=== PATIENT | female | born 1945 | race Caucasian/White ===

== ENCOUNTER → 2016-08-18 | Outpatient (CLI) | payer OTHER, BC ==
[2016-08-18 13:01] LABS: BASOPHILS # (AUTO) 0.05 10*3/UL; EOSINOPHILS # (AUTO) 0.15 10*3/UL; HEMATOCRIT 44.9 % (37.0-47.0); LYMPHOCYTES # (AUTO) 1.22 10*3/uL; MEAN CORPUSCULAR HEMOGLOBIN 28.3 PG (27-31); MEAN CORPUSCULAR HGB CONC 33.4 g/dL (33-37); MEAN CORPUSCULAR VOLUME 84.7 FL (81-99); MEAN PLATELET VOLUME 9.3 FL (7.4-12.2); MONOCYTES # (AUTO) 0.45 10*3/UL (0.3-0.8); NEUTROPHILS # (AUTO) 3.11 10*3/UL; NEUTROPHILS % (AUTO) 62.5 % (50-80)
[2016-08-18 13:07] LABS: BILIRUBIN,URINE NEGATIVE (NEG); COLOR,URINE YELLOW; GLUCOSE, URINE (UA) NEGATIVE (NEG); NITRATE,URINE NEGATIVE (NEG); OCCULT BLOOD,URINE MODERATE (NEG); PH,URINE 5.5 (5.0-8.5); PROTEIN,URINE NEGATIVE (NEG); UROBILINOGEN,URINE 0.2 EU/dL (0.2)
[2016-08-18 13:10] LABS: PLATELET MORPHOLOGY COMMENT NORMAL MORPHOLOGY (NORM); RBC MORPHOLOGY COMMENT NORMAL MORPHOLOGY (NORM); WBC MORPHOLOGY COMMENT NORMAL MORPHOLOGY (NORM)
[2016-08-18 13:26] LABS: BACTERIA,URINE RARE; CLARITY,URINE CLEAR (CLEAR); RENAL EPITHELIAL CELLS,URINE RARE; SQUAMOUS EPITHELIAL CELL,UR RARE; URINE SAMPLE TYPE CLEAN CATCH URINE; WBC,URINE 0-3
== END ==
LOC: MOB LAB 11:28
PROVIDERS: ATTEND Nurse Practitioner Family
DX: K57.92 Diverticulitis of intestine, part unspecified, without perforation or abscess without bleeding (principal); R31.9 Hematuria, unspecified
CPT/HCPCS: 36415; 81001; 85025

== ENCOUNTER → 2016-09-13 | Outpatient (CLI) | payer OTHER, BC | LOC: MOB LAB 10:15 | PROVIDERS: ATTEND Physician Assistant | DX: R35.0 Frequency of micturition (principal); R30.0 Dysuria; R39.15 Urgency of urination; R82.99 Other abnormal findings in urine | CPT/HCPCS: 81002; 87077; 87088; 87186 ×2; 99213; G0463 ==

== ENCOUNTER → 2016-10-06 | Outpatient (CLI) | payer OTHER, BC ==
--- NOTE | 2016-10-06 12:55 | DI ---
CT ABDOMEN SCAN WITHOUT AND WITH IV CONTRAST, 10/06/2016 10:52 AM : Clinical History: Microscopic hematuria. Previous Exam: None at this facility. Scans are performed from the lower lung bases through the liver and kidneys without and with IV contr ast. Sagittal and coronal images are generated. 95 ml of Isovue 300 was injected IV. 45 mL of contras t was injected IV 10 minutes prior to initiation of the second bolus of 50 mL of IV contrast. Postcon trast scans of the abdomen and pelvis were then obtained one minute after the second injection. No or al or rectal contrast was ordered. The lung bases are clear. The liver is normal. The patient is status post cholecystectomy and the com mon bile duct measures 6 mm. There is no abnormality of the spleen, pancreas, and adrenal glands. Bot h kidneys are normal in size, shape, position and contour. Both collecting systems and the entire lef t ureter and the proximal half of the right ureter are opacified with contrast. There is no hydroneph rosis or hydroureter. No renal or ureteral calculi are present. The bladder is only partially filled but has a normal appearance. There are no abnormal retrocrural or periaortic nodes. There is no ascit es. READING: Normal CT abdomen scan without and with IV contrast. The kidneys, ureters, and bladder are normal. CT PELVIS SCAN WITHOUT AND WITH IV CONTRAST, 10/06/2016 10:52 AM: Clinical History: See above. Previous Exam: None at this facility. Scans are performed from just superior to the umbilicus to the symphysis pubis without and with IV co ntrast. This is the same bolus of IV contrast used for the CT scans of the abdomen. Scans through the lower abdomen and pelvis show no masses or abnormal fluid collections. There is no adenopathy. The appendix is not visualized with certainty but there is no inflammatory mass either in the cecal tip or in the right lower quadrant. The small bowel, terminal ileum, and ileocecal valve a re intact. The patient is status post sigmoid colon resection with an end to end anastomosis. The co russel itself is normal. There is a small umbilical hernia through which only mesenteric fat has herniat ed. The patient is status post hysterectomy and bilateral salpingo-oophorectomy. READING: Normal CT scan of the pelvis.
== END ==
LOC: CT 10:44
PROVIDERS: ATTEND Urology
DX: N39.0 Urinary tract infection, site not specified (principal); R31.29 Other microscopic hematuria
CPT/HCPCS: 36415; 74178; 82565; 84520